=== PATIENT | male | born 1955 | race Caucasian/White ===

== ENCOUNTER 2021-07-23 00:50 | Inpatient (IN) | payer MEDICARE, SELFPAY ==
[~2021-07-23] VITALS: Ht 175.3 cm; Wt 79.9 kg
[2021-07-23 02:15] LABS: ALANINE AMINOTRANSFERASE 38 U/L (12-78); ALBUMIN 3.8 G/DL (3.4-5.0); ALBUMIN/GLOBULIN RATIO 1.1 (1.1-1.5); ALKALINE PHOSPHATASE 54 IU/L (46-116); ANION GAP 9 (8-16); ASPARTATE AMINO TRANSFERASE 27 U/L (10-37); BASOPHILS # (AUTO) 0.1 X10'3 (0-0.2); BASOPHILS % (AUTO) 0.9 % (0-1); BILIRUBIN,TOTAL 0.3 MG/DL (0.1-1.0); BLOOD UREA NITROGEN 29 MG/DL (7-18); BUN/CREATININE RATIO 40.8 (5.4-32.0); CALCIUM 9.1 MG/DL (8.5-10.1); CHLORIDE 105 MMOL/L (99-107); CREATININE 0.71 MG/DL (0.60-1.10); EOSINOPHILS # (AUTO) 0.2 X10'3 (0-0.9); EOSINOPHILS % (AUTO) 3.2 % (0-6); GLUCOSE 127 MG/DL (70-104); HEMATOCRIT 45.4 % (42.0-52.0); HEMOGLOBIN 15.4 g/dl (14.0-17.9); LIPASE 99 U/L (73-393); LYMPHOCYTES # (AUTO) 1.6 X10'3 (1.1-4.8); LYMPHOCYTES % (AUTO) 25.8 % (21-51); MEAN CORPUSCULAR HEMOGLOBIN 30.6 PG (27.0-31.0); MEAN CORPUSCULAR HGB CONC 33.9 g/dL (33.0-36.5); MEAN CORPUSCULAR VOLUME 90.2 FL (78-98); MONOCYTES # (AUTO) 0.6 X10'3 (0-0.9); MONOCYTES % (AUTO) 10.4 % (2-12); NEUTROPHILS # (AUTO) 3.6 X10'3 (1.8-7.7); NEUTROPHILS % (AUTO) 59.7 % (42-75); PLATELET COUNT 216 X10'3 (140-440); POTASSIUM 4.3 MMOL/L (3.5-5.1); RED BLOOD COUNT 5.04 X10'6 (4.70-6.10); RED CELL DISTRIBUTION WIDTH 13.4 % (11.5-14.5); SODIUM 141 MMOL/L (135-145); TOTAL CARBON DIOXIDE 26.9 MMOL/L (24-32); TOTAL PROTEIN 7.2 G/DL (6.4-8.2); eGFR > 90 ML/MIN
[2021-07-23] MEDS ORDERED: normal saline 1000ml 1,000 ML IV ONE (03:15)
[2021-07-23] MEDS ORDERED: piperacillin/tazo 4.5gm/100ml 100 ML IV SCH (03:17)
[2021-07-23 05:12] LABS: CLARITY,URINE CLEAR (Clear); COLOR,URINE YELLOW (Yellow); GLUCOSE, URINE NEGATIVE (Neg); KETONES,URINE NEGATIVE (Neg); LEUKOCYTE ESTERASE ,URINE NEGATIVE (Neg); NITRITES, URINE NEGATIVE (Neg); OCCULT BLOOD,URINE NEGATIVE (Neg); PH,URINE 6.5 (4.8-8.0); PROTEIN,URINE NEGATIVE (Neg); UROBILINOGEN,URINE 0.2 E.U/dL (0.2-1.0)
[2021-07-23 05:20] LABS: UA COLLECTION TYPE CLN CATCH MIDSTREAM
[2021-07-23] MEDS ORDERED: morphine 4 MG/ML inj SYRINge IV ONE (05:35)
[2021-07-23] MEDS ORDERED: magnesium hydroxide 30ml (MOM) UD suspension PO PRN (07:35)
[2021-07-23] MEDS ORDERED: potassium Cl 20 mEq SR tablet PO PRN ×2 (07:35)
[2021-07-23] MEDS ORDERED: HYDROmorphone inj. 0.5 MG/0.5 ML DISP.SYRIN IV PRN ×2 (07:35→18:00)
[2021-07-23] MEDS ORDERED: ondansetron/PF 4mg/2ml inj IV PRN (07:35)
[2021-07-23] MEDS ORDERED: mag hydrox/Alum hydrox/simeth 30ml oral suspension PO PRN (07:35)
[2021-07-23] MEDS ORDERED: potassium CL 10mEq/100ml bag 100 ML IV PRN (07:35)
[2021-07-23] MEDS ORDERED: HYDROmorphone/PF 0.2 MG/ML SYRINGE IV PRN ×2 (07:35→18:00)
[2021-07-23] MEDS ORDERED: acetaminophen 325mg tablet PO PRN (07:35)
[2021-07-23] MEDS ORDERED: magnesium 4gm in 100ml NS 100 ML IV PRN (07:35)
[2021-07-23] MEDS ORDERED: magnesium Cl slow-release 64mg tablet PO PRN (07:35)
[2021-07-23] MEDS ORDERED: magnesium 2GM in 50ml NS 50 ML IV PRN (07:35)
[2021-07-23] MEDS: docusate sod 100mg capsule PO SCH ×2 (08:00→19:37)
[2021-07-23] MEDS: enoxaparin 40mg/0.4ml syringe SUBCUT SCH (08:00)
[2021-07-23] MEDS: K and/or MAG REPLACEMENT MC SCH ×2 (08:00→19:11)
[2021-07-23] MEDS: normal saline 1000ml 1,000 ML IV SCH ×2 (08:33→18:05)
[2021-07-23 09:06] LABS: MAGNESIUM 2.3 MG/DL (1.5-2.4)
--- NOTE | 2021-07-23 12:30 | NUR ---
Dr. Gray at bedside.
[2021-07-23] MEDS ORDERED: LOSA25TA41 PO (13:10)
[2021-07-23] MEDS ORDERED: MELO-102 PO (13:10)
[2021-07-23] MEDS ORDERED: FLO0.4C PO (13:10)
[2021-07-23] MEDS ORDERED: LEVO100T9 PO (13:10)
[2021-07-23] MEDS ORDERED: BACL-11 PO (13:10)
[2021-07-23] MEDS ORDERED: CARV12.549 PO (13:10)
[2021-07-23] MEDS ORDERED: BUPR-317 PO (13:10)
--- NOTE | 2021-07-23 14:08 | NUR ---
Called CORAZON Gilliland on 3rd floor to give report; unavailable per rim fire charger operator.
--- NOTE | 2021-07-23 14:49 | NUR ---
dilaudid not effective. pt states, "no pain relief"
--- NOTE | 2021-07-23 14:50 | NUR ---
Report received from ED RN, Madan
--- NOTE | 2021-07-23 15:00 | NUR ---
PUT A CALL INTO DR. HERNANDEZ TO LET HIM KNOW DILAUDID NOT EFFECTIVE.
[2021-07-23 15:20] VITALS: BP 129/79
[2021-07-23] MEDS: piperacillin/tazo 4.5gm/100ml 100 ML IV SCH (16:22)
[2021-07-23] MEDS ORDERED: proCHLORperazine 10 MG/2 ml inj IV PRN (18:40)
[2021-07-23] MEDS ORDERED: baclofen 10mg tablet PO PRN (18:50)
[2021-07-23 19:00] VITALS: BP 114/70
--- NOTE | 2021-07-23 19:00 | NUR ---
Problems reprioritized. Patient report given, questions answered & plan of care reviewed with CORAZON West.
[2021-07-23] MEDS: tamsulosin 0.4mg capsule PO SCH (19:38)
[2021-07-23] MEDS: carVEDilol 12.5mg tablet PO SCH (19:38)
[2021-07-23] MEDS ORDERED: diphenhydrAMINE 25mg capsule PO PRN (20:30)
[2021-07-24] VITALS: BP 103/69
[2021-07-24] MEDS: piperacillin/tazo 4.5gm/100ml 100 ML IV SCH ×3 (00:01→15:47)
[2021-07-24] MEDS: normal saline 1000ml 1,000 ML IV SCH ×2 (03:16→13:19)
[2021-07-24 06:04] LABS: BASOPHILS % (AUTO) 0.2 % (0-1); EOSINOPHILS # (AUTO) 0.1 X10'3 (0-0.9); EOSINOPHILS % (AUTO) 1.1 % (0-6); HEMATOCRIT 38.2 % (42.0-52.0); HEMOGLOBIN 13.4 g/dl (14.0-17.9); LYMPHOCYTES # (AUTO) 1.4 X10'3 (1.1-4.8); MEAN CORPUSCULAR HEMOGLOBIN 31.1 PG (27.0-31.0); MEAN CORPUSCULAR VOLUME 88.7 FL (78-98); MEAN PLATELET VOLUME 7.1 FL (7.4-10.4); MONOCYTES # (AUTO) 0.8 X10'3 (0-0.9); MONOCYTES % (AUTO) 7.3 % (2-12); NEUTROPHILS # (AUTO) 8.2 X10'3 (1.8-7.7); NEUTROPHILS % (AUTO) 78.4 % (42-75); PLATELET COUNT 183 X10'3 (140-440); RED BLOOD COUNT 4.31 X10'6 (4.70-6.10); WHITE BLOOD COUNT 10.5 X10'3 (4.5-11.0)
--- NOTE | 2021-07-24 06:15 | NUR ---
Patient in room [facility] 346. I have received report from CORAZON West and had the opportunity to ask questions and assume patient care.
[2021-07-24 06:30] VITALS: BP 117/73
[2021-07-24 06:31] LABS: ALBUMIN 2.9 G/DL (3.4-5.0); BLOOD UREA NITROGEN 12 MG/DL (7-18); BUN/CREATININE RATIO 21.1 (5.4-32.0); CALCIUM 8.2 MG/DL (8.5-10.1); CREATININE 0.57 MG/DL (0.60-1.10); GLUCOSE 108 MG/DL (70-104); TOTAL CARBON DIOXIDE 24.4 MMOL/L (24-32); eGFR > 90 ML/MIN
[2021-07-24] MEDS: K and/or MAG REPLACEMENT MC SCH ×2 (08:00→19:10)
[2021-07-24] MEDS: buproprion 150mg XL (24-hour) tablet PO SCH (09:14)
[2021-07-24] MEDS: levoTHYROXINE 100mcg tablet PO SCH (09:14)
[2021-07-24] MEDS: docusate sod 100mg capsule PO SCH ×2 (09:14→19:33)
[2021-07-24] MEDS: carVEDilol 12.5mg tablet PO SCH ×2 (09:14→19:33)
[2021-07-24] MEDS: tamsulosin 0.4mg capsule PO SCH ×2 (09:15→19:33)
[2021-07-24] MEDS: losartan 25mg tablet PO SCH (09:15)
[2021-07-24] MEDS: enoxaparin 40mg/0.4ml syringe SUBCUT SCH (09:21)
[2021-07-24 11:00] VITALS: BP 137/87
[2021-07-24] MEDS ORDERED: zolpidem 5mg tablet PO PRN (18:10)
[2021-07-24 19:00] VITALS: BP 149/89
--- NOTE | 2021-07-24 19:10 | NUR ---
Problems reprioritized. Patient report given, questions answered & plan of care reviewed with CORAZON West.
[2021-07-25] VITALS: BP 128/80
[2021-07-25] MEDS: normal saline 1000ml 1,000 ML IV SCH ×2 (00:07→09:35)
[2021-07-25] MEDS: piperacillin/tazo 4.5gm/100ml 100 ML IV SCH ×2 (00:07→08:00)
--- NOTE | 2021-07-25 06:45 | NUR ---
Patient in room [facility] 346B. I have received report from CORAZON KEYES and had the opportunity to ask questions and assume patient care.
[2021-07-25 07:05] LABS: BASOPHILS % (AUTO) 0.3 % (0-1); EOSINOPHILS # (AUTO) 0.3 X10'3 (0-0.9); EOSINOPHILS % (AUTO) 3.6 % (0-6); HEMATOCRIT 39.5 % (42.0-52.0); HEMOGLOBIN 13.3 g/dl (14.0-17.9); LYMPHOCYTES # (AUTO) 1.1 X10'3 (1.1-4.8); LYMPHOCYTES % (AUTO) 13.4 % (21-51); MEAN CORPUSCULAR HEMOGLOBIN 30.5 PG (27.0-31.0); MEAN CORPUSCULAR HGB CONC 33.7 g/dL (33.0-36.5); MEAN CORPUSCULAR VOLUME 90.7 FL (78-98); MONOCYTES # (AUTO) 0.8 X10'3 (0-0.9); MONOCYTES % (AUTO) 9.3 % (2-12); NEUTROPHILS # (AUTO) 6.1 X10'3 (1.8-7.7); NEUTROPHILS % (AUTO) 73.4 % (42-75); PLATELET COUNT 182 X10'3 (140-440); RED BLOOD COUNT 4.36 X10'6 (4.70-6.10); RED CELL DISTRIBUTION WIDTH 13.1 % (11.5-14.5); WHITE BLOOD COUNT 8.3 X10'3 (4.5-11.0)
[2021-07-25 07:26] LABS: ALBUMIN 2.9 G/DL (3.4-5.0); ANION GAP 6 (8-16); BLOOD UREA NITROGEN 7 MG/DL (7-18); BUN/CREATININE RATIO 12.3 (5.4-32.0); CALCIUM 8.4 MG/DL (8.5-10.1); CHLORIDE 107 MMOL/L (99-107); CREATININE 0.57 MG/DL (0.60-1.10); GLUCOSE 105 MG/DL (70-104); POTASSIUM 3.6 MMOL/L (3.5-5.1); SODIUM 139 MMOL/L (135-145); eGFR > 90 ML/MIN
[2021-07-25] MEDS: carVEDilol 12.5mg tablet PO SCH (07:56)
[2021-07-25] MEDS: losartan 25mg tablet PO SCH (07:56)
[2021-07-25] MEDS: tamsulosin 0.4mg capsule PO SCH (07:57)
[2021-07-25] MEDS: levoTHYROXINE 100mcg tablet PO SCH (07:57)
[2021-07-25] MEDS: enoxaparin 40mg/0.4ml syringe SUBCUT SCH ×2 (07:58→08:00)
[2021-07-25] MEDS: buproprion 150mg XL (24-hour) tablet PO SCH (07:59)
[2021-07-25] MEDS: docusate sod 100mg capsule PO SCH (08:00)
[2021-07-25] MEDS ORDERED: amox tr/potassium clavulanate 875/125mg TAB PO ONE (10:10)
[2021-07-25] MEDS ORDERED: AMOX-117 PO (10:30)
[2021-07-25] MEDS ORDERED: buPROPion SR 150mg tablet PO SCH (10:46)
[2021-07-25 11:00] VITALS: BP 123/79
--- NOTE | 2021-07-25 11:45 | NUR ---
PATIENT STABLE AND APPROPRIATE FOR DISCHARGE, IV TAKEN OUT, EDUCATION GIVEN, NEW MEDS E-SCRIPTED TO PREFERRED PHARMACY, ALL BELONGINGS SENT WITH PATIENT, PATIENT TAKEN BY WHEELCHAIR TO LOBBY TO AN AWAITING CAR WHERE WILL TAKE PATIENT HOME
--- NOTE | 2021-07-25 12:16 | NUR ---
Nutrition Consult: Pt admit DX diverticulitis RN requesting RD visit for diet education. Pt/SO seen by RD at bedside for written/verbal low-fiber diet ed w/ RD contact information provided. RD educated pt/ on progression of fiber addition over time w/ ultimate goal of higher fiber diet in the long run to assist w/ minimizing further episodes. RD encouraged pt/ to contact dietitian's office if further questions/concerns. Addendum: 07/25/21 at [address] Amended: Links added.
[2021-07-25 15:38] LABS: ANION GAP 5 (8-16); CHLORIDE 110 MMOL/L (99-107); SODIUM 139 MMOL/L (135-145)
== END 2021-07-25 11:54 | disposition home or self-care (01) | DRG 392 ==
LOC: ER 00:51 → ED HOLD 07:36 → SUR 3N 15:07
PROVIDERS: ADMIT Family Medicine; ATTEND Family Medicine
DX: K57.20 Diverticulitis of large intestine with perforation and abscess without bleeding (principal); I10 Essential (primary) hypertension; E03.9 Hypothyroidism, unspecified; F41.9 Anxiety disorder, unspecified; G89.4 Chronic pain syndrome; Z20.822 Contact with and (suspected) exposure to COVID-19; M19.90 Unspecified osteoarthritis, unspecified site; Z88.1 Allergy status to other antibiotic agents; Z88.6 Allergy status to analgesic agent
CPT/HCPCS: 36415; 74176; 80048; 80053; 81003; 83605; 83690; 83735; 84443; 85025; 87081; 87635; 96360; 99285; G0378; J0780; J1170; J1650; J2270; J2405; J2543; J7030; Q0163

== ENCOUNTER 2021-09-01 06:41 | Inpatient (IN) | payer MEDICARE, SELFPAY ==
[2021-08-30 12:08] LABS: BASOPHILS % (AUTO) 0.7 % (0-1); EOSINOPHILS # (AUTO) 0.1 X10'3 (0-0.9); EOSINOPHILS % (AUTO) 2.6 % (0-6); LYMPHOCYTES # (AUTO) 1.3 X10'3 (1.1-4.8); LYMPHOCYTES % (AUTO) 22.9 % (21-51); MEAN CORPUSCULAR HEMOGLOBIN 30.4 PG (27.0-31.0); MEAN CORPUSCULAR HGB CONC 33.8 g/dL (33.0-36.5); MEAN CORPUSCULAR VOLUME 89.9 FL (78-98); MEAN PLATELET VOLUME 7.2 FL (7.4-10.4); MONOCYTES # (AUTO) 0.6 X10'3 (0-0.9); MONOCYTES % (AUTO) 11.3 % (2-12); NEUTROPHILS # (AUTO) 3.6 X10'3 (1.8-7.7); NEUTROPHILS % (AUTO) 62.5 % (42-75); PRE OP HEMATOCRIT 44.3 % (42.0-52.0); PRE OP PLATELET COUNT 242 X10'3 (140-440); RED BLOOD COUNT 4.93 X10'6 (4.70-6.10); RED CELL DISTRIBUTION WIDTH 13.5 % (11.5-14.5)
[2021-08-30 12:20] LABS: ALBUMIN 3.8 G/DL (3.4-5.0); ALKALINE PHOSPHATASE 54 IU/L (46-116); BLOOD UREA NITROGEN 11 MG/DL (7-18); BUN/CREATININE RATIO 16.4 (5.4-32.0); CALCIUM 9.1 MG/DL (8.5-10.1); CHLORIDE 103 MMOL/L (99-107); CREATININE 0.67 MG/DL (0.60-1.10); PRE OP ALT 69 U/L (30-65); PRE OP ANION GAP 9 (8-16); PRE OP AST 30 U/L (10-37); PRE OP BILIRUB, TOTAL 0.6 MG/DL (0.0-1.0); PRE OP GLUCOSE 101 MG/DL (70-104); PRE OP SODIUM 139 MMOL/L (135-145); TOTAL CARBON DIOXIDE 26.6 MMOL/L (24-32); TOTAL PROTEIN 7.5 G/DL (6.4-8.2); eGFR > 90 ML/MIN
[2021-09-01] VITALS (22 sets, daily range): BP systolic 104–140; BP diastolic 60–90
[~2021-09-01] VITALS: Ht 175.3 cm; Wt 75.3 kg
[~2021-09-01 06:41] MED LIST: BACL-11 PO; BUPR-317 PO; CARV12.549 PO; COLON HEALTH; DOCUMENT DATE & TIME OF BETA-BLOCKER PO ONE; FAMO20TA8 PO; FLO0.4C PO; LACT1CAP65 PO; LEVO100T9 PO; LOSA25TA41 PO; ZOLP10TA PO; [UNRECOGNIZED DRUG - OTHER]; ceFOXitin 2GM-NS 100mL ADDvant 100 ML IV ONE; famotidine 20mg tablet PO ONE; ringers solution, lacted 1,000 ML IV SCH
[2021-09-01] MEDS ORDERED: LIDOcaine 1% 30ml preserv. free vial ONE (07:03)
[2021-09-01] MEDS ORDERED: BUPIVAcaine 0.5% inj/PF 30 ML ONE (07:03)
[2021-09-01] MEDS ORDERED: hydrALAZINE 20mg/ml inj. IV PRN ×2 (07:30→10:10)
[2021-09-01] MEDS ORDERED: ondansetron/PF 4mg/2ml inj IV PRN ×3 (07:30→11:20)
[2021-09-01] MEDS ORDERED: ringers solution, lacted 1,000 ML IV SCH ×2 (07:30→10:10)
[2021-09-01] MEDS ORDERED: morphine 4 MG/ML inj SYRINge IV PRN (07:30)
[2021-09-01] MEDS ORDERED: fentaNYL/PF 50MCG/1 ML 2ML syringe IV PRN ×4 (07:30→10:10)
[2021-09-01] MEDS ORDERED: labetalol 20mg/4ml (5mg/ml) syringe IV PRN (07:30)
[2021-09-01] MEDS ORDERED: morphine 2 MG/ML inj. syringe IV PRN ×2 (07:30→10:10)
[2021-09-01] MEDS ORDERED: MIDAZolam 1mg/ml 10ml vial IV ONE (08:00)
[2021-09-01] MEDS ORDERED: sevoflurane 250ml liquid IH ONE (09:17)
[2021-09-01] MEDS ORDERED: dexamethasone sod phosphate 10mg/ml inj ONE (09:17)
[2021-09-01] MEDS ORDERED: rocuronium 10mg/ml inj IV ONE ×2 (09:17→09:35)
--- NOTE | 2021-09-01 09:25 | NUR ---
DUE TO PT INCREASED ANXIETY ORDER PER DR. Lovelace TO GIVEN VERSED 2MG IV Q 5 MIN X 3 DOSES. 1ST DOSE GIVEN AT 0822. PT PAUL WELL ANXIETY DECREASED AND PT RESTING WITH EYES CLOSED NO FURTHER DOSES NEEDED. DR Lovelace IN TO SEE PT REQUESTED 2ND DOSE TO BE GIVEN, 2MG GIVEN AT 0915. PT PAUL WELL. TO OR AT 0925
[2021-09-01] MEDS ORDERED: MIDAZolam 1 MG/ML 5ML VIAL ONE (09:27)
[2021-09-01] MEDS ORDERED: LIDOcaine 2% (20mg/ml) 5ml vial ONE (09:34)
[2021-09-01] MEDS ORDERED: propofol inj 20 ML IV ONE (09:34)
[2021-09-01] MEDS ORDERED: ondansetron/PF 4mg/2ml inj ONE (09:35)
[2021-09-01] MEDS ORDERED: morphine 10mg/ml inj. ONE ×2 (09:35)
[2021-09-01] MEDS ORDERED: glycopyrrolate 0.2mg/ml inj ONE (09:36)
[2021-09-01] MEDS ORDERED: ePHEDrine 50MG/ML INJ. ONE (09:53)
[2021-09-01] MEDS ORDERED: BUPIVAcaine 0.5% inj/PF 30 ml vial IJ ONE (09:59)
[2021-09-01] MEDS ORDERED: enalaprilat dihydrate 2.5mg/2ml vial IV PRN (10:10)
[2021-09-01] MEDS ORDERED: zolpidem 5mg tablet PO PRN (11:20)
[2021-09-01] MEDS ORDERED: naloxone 0.4 mg/ml inj IV PRN (11:20)
[2021-09-01] MEDS ORDERED: LORazepam 2 mg/ml vial IV PRN (11:20)
--- NOTE | 2021-09-01 11:20 | NUR ---
Received from OR via HOSPITAL BED , accompanied by Anesthesiologist DR SWANN and report given by Anesthesiolgist. PT PRESENTS WITH 20G LEFT WRIST, 3 BANDAIDS ON ABD CDI, VSS. Addendum: 09/01/21 at 1130 by Yuki Workman RN, RN Amended: Links added.
[2021-09-01] MEDS ORDERED: baclofen 10mg tablet PO PRN (11:25)
[2021-09-01] MEDS: morphine 4 MG/ML inj SYRINge IV PRN ×3 (11:44→12:24)
--- NOTE | 2021-09-01 12:50 | NUR ---
Report called to receiving nurse KAROLINE CHANDRA. PT Transferred TO ROOM 4013A BY RAZ CHANDRA ON HOSPITAL BED. BED IN LOW LOCKED POSITION, CALL LIGHT IN REACH. ONE PT BELONGING BAG TO ROOM AND LEFT HEARING AID. Special Issues communicated to receiving nurse. Addendum: 09/01/21 at 1334 by Yuki Workman RN RN Amended: Links added.
--- NOTE | 2021-09-01 13:22 | NUR ---
Patient in room PAS IN 900. I have received report from Yuki CHANDRA and had the opportunity to ask questions and assume patient care. Patient orientated to room. four bandaides CDI. pain 10/28. present.
[2021-09-01] MEDS: ketorolac trometh. 30mg/ml inj. IV SCH (16:15)
[2021-09-01] MEDS: ceFOXitin inj 1,000 MG in dextrose 5%-water 100 ML IV SCH (16:16)
[2021-09-01] MEDS: ringers solution, lacted 1,000 ML IV SCH ×2 (16:16→21:20)
--- NOTE | 2021-09-01 16:34 | NUR ---
patient unable to void, given pain relief and ambulated will keep monitoring bladder scanned 592mls .
--- NOTE | 2021-09-01 18:10 | NUR ---
16fr Wyatt placed draining yellow clear urine.
--- NOTE | 2021-09-01 18:43 | NUR ---
Problems reprioritized. Patient report given, questions answered & plan of care reviewed with rowan CHANDRA.
[2021-09-01] MEDS ORDERED: oxyCODONE/APAP 5-325mg tablet PO PRN (19:55)
[2021-09-01] MEDS: zolpidem 5mg tablet PO PRN (20:38)
[2021-09-01] MEDS: tamsulosin 0.4mg capsule PO SCH (20:39)
[2021-09-01] MEDS: carVEDilol 12.5mg tablet PO SCH (20:39)
[2021-09-02] MEDS: ketorolac trometh. 30mg/ml inj. IV SCH ×3 (00:16→15:58)
[2021-09-02] MEDS: ceFOXitin inj 1,000 MG in dextrose 5%-water 100 ML IV SCH (00:16)
[2021-09-02] MEDS: oxyCODONE/APAP 5-325mg tablet PO PRN ×3 (03:02→21:15)
[2021-09-02 06:00] VITALS: BP 116/71
[2021-09-02 06:21] LABS: BASOPHILS % (AUTO) 0.1 % (0-1); EOSINOPHILS % (AUTO) 0.1 % (0-6); HEMATOCRIT 36.7 % (42.0-52.0); HEMOGLOBIN 12.5 g/dl (14.0-17.9); LYMPHOCYTES % (AUTO) 8.9 % (21-51); MEAN CORPUSCULAR HEMOGLOBIN 30.4 PG (27.0-31.0); MEAN CORPUSCULAR HGB CONC 34.1 g/dL (33.0-36.5); MONOCYTES # (AUTO) 0.8 X10'3 (0-0.9); MONOCYTES % (AUTO) 7.4 % (2-12); NEUTROPHILS # (AUTO) 9.4 X10'3 (1.8-7.7); NEUTROPHILS % (AUTO) 83.5 % (42-75); PLATELET COUNT 198 X10'3 (140-440); RED BLOOD COUNT 4.12 X10'6 (4.70-6.10); RED CELL DISTRIBUTION WIDTH 13.4 % (11.5-14.5); WHITE BLOOD COUNT 11.2 X10'3 (4.5-11.0)
--- NOTE | 2021-09-02 06:43 | NUR ---
Problems reprioritized. Patient report given, questions answered & plan of care reviewed with Judi CHANDRA.
[2021-09-02 07:00] LABS: ALBUMIN 2.9 G/DL (3.4-5.0); ANION GAP 9 (8-16); BLOOD UREA NITROGEN 9 MG/DL (7-18); BUN/CREATININE RATIO 13.2 (5.4-32.0); CALCIUM 8.3 MG/DL (8.5-10.1); CHLORIDE 107 MMOL/L (99-107); CREATININE 0.68 MG/DL (0.60-1.10); GLUCOSE 132 MG/DL (70-104); SODIUM 141 MMOL/L (135-145); TOTAL CARBON DIOXIDE 24.7 MMOL/L (24-32); eGFR > 90 ML/MIN
[2021-09-02] MEDS: ringers solution, lacted 1,000 ML IV SCH (07:20)
[2021-09-02] MEDS: carVEDilol 12.5mg tablet PO SCH (08:00)
[2021-09-02] MEDS ORDERED: losartan 25mg tablet PO SCH ×2 (08:00→08:15)
[2021-09-02] MEDS: enoxaparin 40mg/0.4ml syringe SQ SCH (08:00)
[2021-09-02] MEDS ORDERED: buproprion 150mg XL (24-hour) tablet PO SCH (08:00)
[2021-09-02] MEDS: tamsulosin 0.4mg capsule PO SCH ×2 (08:01→20:22)
[2021-09-02] MEDS: levoTHYROXINE 100mcg tablet PO SCH (08:01)
[2021-09-02] MEDS: buPROPion SR 150mg tablet PO SCH (09:26)
[2021-09-02 10:00] VITALS: BP 113/69
[2021-09-02] MEDS ORDERED: carVEDilol 12.5mg tablet PO SCH ×2 (14:40→20:00)
--- NOTE | 2021-09-02 14:41 | NUR ---
Ok per Dr Harkins to leave Wyatt catheter in today and continue bladder training. MATTY Wyatt in am.
--- NOTE | 2021-09-02 18:41 | NUR ---
Problems reprioritized. Patient report given, questions answered & plan of care reviewed with Brissa CHANDRA.
[2021-09-02 19:00] VITALS: BP 155/86
[2021-09-02] MEDS: zolpidem 5mg tablet PO PRN (21:16)
[2021-09-02 22:00] VITALS: BP_SYST 149; BP_SYST 153; BP_DIAS 89; BP_DIAS 96
[2021-09-03] MEDS: ketorolac trometh. 30mg/ml inj. IV SCH ×2 (00:13→09:29)
[2021-09-03] MEDS: oxyCODONE/APAP 5-325mg tablet PO PRN (05:41)
--- NOTE | 2021-09-03 06:42 | NUR ---
Problems reprioritized. Patient report given, questions answered & plan of care reviewed with CORAZON Small.
[2021-09-03] MEDS: tamsulosin 0.4mg capsule PO SCH (08:00)
[2021-09-03] MEDS: enoxaparin 40mg/0.4ml syringe SQ SCH ×2 (08:00→09:30)
[2021-09-03 08:06] LABS: BASOPHILS % (AUTO) 0.6 % (0-1); EOSINOPHILS # (AUTO) 0.2 X10'3 (0-0.9); EOSINOPHILS % (AUTO) 2.2 % (0-6); HEMATOCRIT 40.9 % (42.0-52.0); LYMPHOCYTES # (AUTO) 1.6 X10'3 (1.1-4.8); LYMPHOCYTES % (AUTO) 20.8 % (21-51); MEAN CORPUSCULAR HEMOGLOBIN 30.6 PG (27.0-31.0); MEAN CORPUSCULAR HGB CONC 34.2 g/dL (33.0-36.5); MEAN CORPUSCULAR VOLUME 89.6 FL (78-98); MONOCYTES # (AUTO) 0.8 X10'3 (0-0.9); MONOCYTES % (AUTO) 10.9 % (2-12); NEUTROPHILS % (AUTO) 65.5 % (42-75); PLATELET COUNT 203 X10'3 (140-440); RED BLOOD COUNT 4.56 X10'6 (4.70-6.10); RED CELL DISTRIBUTION WIDTH 13.7 % (11.5-14.5); WHITE BLOOD COUNT 7.6 X10'3 (4.5-11.0)
[2021-09-03 08:16] LABS: ALBUMIN 3.3 G/DL (3.4-5.0); ANION GAP 7 (8-16); BLOOD UREA NITROGEN 11 MG/DL (7-18); BUN/CREATININE RATIO 14.7 (5.4-32.0); CALCIUM 8.5 MG/DL (8.5-10.1); CHLORIDE 108 MMOL/L (99-107); CREATININE 0.75 MG/DL (0.60-1.10); GLUCOSE 113 MG/DL (70-104); POTASSIUM 3.5 MMOL/L (3.5-5.1); SODIUM 144 MMOL/L (135-145); TOTAL CARBON DIOXIDE 28.8 MMOL/L (24-32); eGFR > 90 ML/MIN
[2021-09-03] MEDS: buPROPion SR 150mg tablet PO SCH (09:29)
[2021-09-03] MEDS: levoTHYROXINE 100mcg tablet PO SCH (09:29)
[2021-09-03 10:00] VITALS: BP 132/82
[2021-09-03] MEDS ORDERED: magnesium hydroxide 30ml (MOM) UD suspension PO ONE (11:45)
[2021-09-03] MEDS ORDERED: PER5325T PO (11:45)
--- NOTE | 2021-09-03 13:53 | NUR ---
Patient discharged home with Kati. Patient will get biopsy results called to him and follow up with Dr Harkins in 2 weeks and is aware he needs to call for appt. IV taken out, all belongings taken from room. Patient will pepper picker medication at pharmacy. I called to verify they got it. No tele, no meds in pharmacy. Pt appears appropriate for discharge.
[2021-09-03] MEDS ORDERED: carVEDilol 12.5mg tablet PO SCH (21:00)
== END 2021-09-03 13:20 | disposition home or self-care (01) | DRG 331 ==
LOC: PAS IN 06:41 → ORTHO 4S 13:00
PROVIDERS: ADMIT Surgery; ATTEND Surgery
PROC: 0DTJ4ZZ Resection of Appendix, Percutaneous Endoscopic Approach (ICD-10-PCS; 2021-09-01)
PROC: 8E0W4CZ Robotic Assisted Procedure of Trunk Region, Percutaneous Endoscopic Approach (ICD-10-PCS; 2021-09-01)
PROC: 0DBH4ZZ Excision of Cecum, Percutaneous Endoscopic Approach (ICD-10-PCS; principal; 2021-09-01 09:17)
DX: K63.9 Disease of intestine, unspecified (principal); Z79.899 Other long term (current) drug therapy
CPT/HCPCS: 36415; 80048; 80053; 82948; 85025; 86885; 86900; 86901; 87081; 87635; 88305; 88307; 88313; 88331; 93005; A4215; A4618; C1758; G0378; J0694; J1100; J1650; J1885; J2250; J2270; J2274; J2405; J2704; J3490; J7060; J7120; S0020

== ENCOUNTER 2024-05-04 18:25 | Emergency (ER) | payer MEDICARE, SELFPAY ==
[~2024-05-04] VITALS: Ht 175.3 cm; Wt 79.5 kg
[~2024-05-04 18:25] MED LIST changes: -BUPR-317 PO; +BUPR-561 PO; -DOCUMENT DATE & TIME OF BETA-BLOCKER PO ONE; +PER5325T PO; -ceFOXitin 2GM-NS 100mL ADDvant 100 ML IV ONE; -famotidine 20mg tablet PO ONE; -ringers solution, lacted 1,000 ML IV SCH
[2024-05-04 19:07] LABS: BASOPHILS % (AUTO) 0.8 % (0-1); EOSINOPHILS # (AUTO) 0.2 X10'3 (0-0.9); EOSINOPHILS % (AUTO) 3.4 % (0-6); HEMATOCRIT 45.1 % (42.0-52.0); HEMOGLOBIN 15.5 g/dl (14.0-17.9); LYMPHOCYTES % (AUTO) 32.1 % (21-51); MEAN CORPUSCULAR HEMOGLOBIN 31.8 PG (27.0-31.0); MEAN CORPUSCULAR HGB CONC 34.4 g/dL (33.0-36.5); MEAN CORPUSCULAR VOLUME 92.4 FL (78-98); MEAN PLATELET VOLUME 7.3 FL (7.4-10.4); MONOCYTES # (AUTO) 0.7 X10'3 (0-0.9); MONOCYTES % (AUTO) 10.7 % (2-12); NEUTROPHILS # (AUTO) 3.3 X10'3 (1.8-7.7); PLATELET COUNT 275 X10'3 (140-440); RED BLOOD COUNT 4.89 X10'6 (4.70-6.10); RED CELL DISTRIBUTION WIDTH 13.1 % (11.5-14.5); WHITE BLOOD COUNT 6.3 X10'3 (4.5-11.0)
[2024-05-04 19:26] LABS: ALANINE AMINOTRANSFERASE 38 U/L (12-78); ALBUMIN 3.8 G/DL (3.4-5.0); ALKALINE PHOSPHATASE 58 IU/L (46-116); ANION GAP 8 (8-16); ASPARTATE AMINO TRANSFERASE 26 U/L (10-37); BILIRUBIN,TOTAL 0.3 MG/DL (0.1-1.0); BLOOD UREA NITROGEN 13 MG/DL (7-18); CALCIUM 8.7 MG/DL (8.5-10.1); CHLORIDE 106 MMOL/L (99-107); CREATININE 0.93 MG/DL (0.60-1.10); GLUCOSE 130 MG/DL (70-104); POTASSIUM 3.6 MMOL/L (3.5-5.1); SODIUM 143 MMOL/L (135-145); TOTAL CARBON DIOXIDE 29.1 MMOL/L (24-32); TOTAL PROTEIN 7.6 G/DL (6.4-8.2); eCRCL 76 ML/MIN; eGFR 81 ML/MIN
[2024-05-04 19:32] LABS: PRO BRAIN NATRIURETIC PEPTIDE 47 PG/ML (0-125)
[2024-05-04 20:16] VITALS: BP 163/103; PULSE 94; RESP 16; TEMP 98.2; O2SAT 94
== END 2024-05-04 20:30 | disposition home or self-care (01) ==
LOC: ER 18:26
DX: R07.89 Other chest pain (principal); I10 Essential (primary) hypertension; G89.29 Other chronic pain; M19.90 Unspecified osteoarthritis, unspecified site; Z88.5 Allergy status to narcotic agent; Z88.1 Allergy status to other antibiotic agents
CPT/HCPCS: 36415; 71045; 80053; 83880; 84484; 85025; 93005; 99285

== ENCOUNTER 2025-05-17 18:46 | Emergency (ER) | payer MEDICARE, SELFPAY ==
[~2025-05-17] VITALS: Ht 175.3 cm; Wt 79.6 kg
[~2025-05-17 18:46] MED LIST changes: -BUPR-561 PO; +BUPR-726 PO; +ZOLP-679 PO; -ZOLP10TA PO
[2025-05-17 18:49] VITALS: TEMP 98.9
--- NOTE | 2025-05-17 19:00 | ELECTROCARDIOGRAPH REPORT ---
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 Boaz Alberto Measurements Intervals [place] Rate: 97 P: 50 UT: 135 QRS: 13 QRSD: 80 T: 1 QT: 336 QTc: 427 Interpretive Statements Sinus rhythm Minimal ST depression, anterolateral leads Electronically Signed On 05-18-2025 11:17:[address] Boaz Alberto Please click the below link to view image of tracing.
[2025-05-17 19:14] LABS: MEAN PLATELET VOLUME 7.1 FL (7.4-10.4); RED CELL DISTRIBUTION WIDTH 13.3 % (11.5-14.5)
[2025-05-17 19:38] LABS: CREATININE 0.78 MG/DL (0.60-1.10); PRO BRAIN NATRIURETIC PEPTIDE < 30 PG/ML (0-125); TOTAL CARBON DIOXIDE 30.9 MMOL/L (24-32); eCRCL 89 ML/MIN; eGFR > 90 ML/MIN
--- NOTE | 2025-05-17 19:47 | RADIOLOGY REPORT ---
EXAM: DI CHEST,SINGLE VIEW CLINICAL HISTORY: CP TECHNIQUE: Single PA view of the chest WID: COMPARISON: DI CHEST,SINGLE VIEW on DOS: 05/04/24 FINDINGS: Lines and tubes: None Chest: The heart size and pulmonary vasculature is within normal limits. Calcified plaque projects Over the aortic arch. No pleural effusion, pneumothorax, or consolidation. The osseous structures are grossly intact. Multilevel thoracic spondylosis. IMPRESSION: 1. No acute cardiopulmonary abnormality.
[2025-05-17 20:57] VITALS: BP 137/99; PULSE 89; RESP 13; O2SAT 95
--- NOTE | 2025-05-17 21:33 | Physician Documentation ---
History of Present Illness ~ Chief Complaint: Chest Pain Stated Complaint: LEFT SIDE PAIN Time Seen by MD: 19:25 Primary Medical Doctor: DR YUMIKO MAHAN This is a 70-year-old male past history of hypertension and hiatal hernia coming in with acute on chronic chest pain. Patient states he feels the pain in the left chest comes and goes at rest or when active. Wound a 40 mi bike ride today. States it lasts about 60 seconds goes away and his paroxysmal. Been over a year since he has had an EGD. Patient has frequent heartburn and states he has in his upper esophagus often. He denies any shortness of breath weakness diaphoresis. Has had a negative stress test performed within the last year per patient. Has a business process consultant he follows with locally. Patient anxious currently. Does not like hospitals. No other associated symptoms at this time. Review of systems otherwise negative. Medication Reconciliation Allergies: Coded Allergies: Erythromycin Lactobionate (Verified Allergy, Unknown, 05/17/25) hydrocodone (Verified Allergy, Unknown, 05/17/25) Scheduled Bupropion HCl (Bupropion Xl), 1 TAB PO QAM, (Reported) Carvedilol (Carvedilol), 1 TAB PO Q12H, (Reported) Levothyroxine Sodium (Levothyroxine Sodium), 1 TAB PO QAM, (Reported) Losartan Potassium (Losartan Potassium), 1 TAB PO DAILY, (Reported) Omeprazole (Prilosec), 1 CAP PO DAILY Tamsulosin Hcl (Flomax), 1 CAP PO BID, (Reported) Zolpidem Tartrate (Ambien), 1 TAB PO HSPRN, (Reported) Scheduled PRN Baclofen (Baclofen), 1 TAB PO BID PRN for MUSCLE PAIN, (Reported) Oxycodone Hcl/Acetaminophen 5/325 MG* (Percocet 5/325 MG*), 1 TAB PO Q4H PRN for moderate or severe pain 4-10 Miscellaneous Medications Famotidine (Famotidine), 1 TAB PO, (Reported) Lactobacillus Acidophilus (Probiotic), 1 EACH PO, (Reported) [Colon Health], (Reported) [Marshmellow Root], (Reported) Past Medical History Past Medical History: *CARDIOVASCULAR*, Hypertension, Arthritis, Chronic Pain, Anxiety Past Surgical History: noncontributory Alcohol Use: None Drug Use: none Lives In: Home Review of Systems Constitutional: Reports: no symptoms reported Eyes: Reports: no symptoms reported ENT: Reports: no symptoms reported Respiratory: Reports: no symptoms reported Cardiovascular: Reports: chest pain Gastrointestinal: Reports: no symptoms reported Genitourinary: Reports: no symptoms reported Musculoskeletal: Reports: no symptoms reported Allergic/Immunologic: Reports: no symptoms reported Physical Exam Vital Signs: Temperature: 98.9, Source: Temporal, Heart Rate: 89, Respiratory Rate: 13, BP: 137/99, Pulse Oximetry: 95, Weight: 79.600 Oxygen Flow Rate: 0 Physical Exam General: Awake no distress. Verbal Head: No trauma Eyes: Nl lids Nl conjunctiva. No eye discharge ENT: Mucous membranes Nl. Lips Nl. No lesions Neck: Supple. No JVD. No visible mass Resp: Rate normal. No respiratory distress. No retractions. Normal air flow. No wheezes, rhonchi, or rales. Heart: Regular rhythm. No murmur. No rub Abdomen: Soft. Nontender. No guarding. No rebound Musc/skeletal: No calf or popliteal tenderness. No edema Skin: No rash. No petechiae. Not diaphoretic Neuro: Alert, oriented. Normal speech Progress Results/Orders Results/Orders Orders - GOOD KRAFT MD Chest,Single View (05/17/25 19:06) Monitor (05/17/25 18:58) Saline Lock (05/17/25 18:58) Oxygen (05/17/25 18:58) Electrocardiogram (05/17/25 18:58) Completed Orders - GOOD KRAFT MD Chest,Single View (05/17/25 19:06) Cbc/Diff (05/17/25 18:58) BMP (05/17/25 18:58) PBNP (05/17/25 18:58) Electrocardiogram (05/17/25 18:58) Hs Troponin I W Calculations (05/17/25 18:58) Hs Troponin I W Calculations (05/17/25 20:58) Pantoprazole 40mg Iv (Protonix 40mg Iv) (05/17/25 21:25) Lidocaine 2% Viscous (Xylocaine 2% Visco (05/18/25 00:00) Mag & Alum Hydrox/Simeth Susp (Maalox Or (05/17/25 21:25) Acetaminophen 325mg Tablet (Tylenol Tabl (05/17/25 21:40) Acetaminophen 325mg Tablet (Tylenol Tabl (05/17/25 21:50) Vital Signs 05/17/25 05/17/25 05/17/25 18:49 20:18 20:57 Temp 98.9 Pulse 96 85 89 Resp 16 13 13 B/P (MAP) 163/125 140/100 (113) 137/99 (112) Pulse Ox 98 96 95 O2 Flow Rate 0 0 0 Laboratory Tests Test 05/17/25 19:03 05/17/25 21:14 White Blood Count 7.0 Red Blood Count 5.02 Hemoglobin 15.2 Hematocrit 45.4 Mean Corpuscular Volume 90.4 Mean Corpuscular Hemoglobin 30.2 Mean Corpuscular Hemoglobin Concent 33.4 Red Cell Distribution Width 13.3 Platelet Count 248 Mean Platelet Volume 7.1 L Neutrophils (%) (Auto) 57.4 Lymphocytes (%) (Auto) 28.7 Monocytes (%) (Auto) 10.9 Eosinophils (%) (Auto) 2.5 Basophils (%) (Auto) 0.5 Neutrophils # (Auto) 4.0 Lymphocytes # (Auto) 2.0 Monocytes # (Auto) 0.8 Eosinophils # (Auto) 0.2 Basophils # (Auto) 0.0 CBC Comment Sodium Level 142 Potassium Level 3.9 Chloride Level 105 Carbon Dioxide Level 30.9 Anion Gap 6 L Blood Urea Nitrogen 16 Creatinine 0.78 Estimated GFR/1.73 m2 > 90 BUN/Creatinine Ratio 20.5 H Glucose Level 106 H Calcium Level 8.9 Troponin I High Sensitivity 8 7 Pro-B-Type Natriuretic Peptide < 30 Albumin 3.9 Chemistry Comments Troponin I High Sens Percent Delta 12 Troponin I Hi Sens Absolute Change -1 Medical Decision Making Additional information obtaine: old records, family Findings EKG INTERPRETED BY ME: Rate/Rhythm: Sinus rhythm Normal Sinus Rhythm at a rate of [ 97] beats per minute QRS, ST, T-waves: No changes consistent w/ acute ischemia Impression: No evidence of ischemia or arrhythmia Initial troponin negative EKG normal Chest x-ray normal Lab work within normal limits Patient given 40 mg of Protonix IV, viscous lidocaine 15 mg, Maalox for a GI cocktail for possible GERD like symptoms. Nasal packing was inserted along the septal floor, parallel to the hard palate. The patient was reassessed after 20 minutes to ensure no continued bleeding around the packing or into the oropharynx. The patient was counseled that the packing needs to be removed within 24-72 hours. [An antibiotic was prescribed for prophylaxis with first line agent of cephalexin or amoxicillin/clavulanate (clindamycin in penicillin allergy)] MEDICAL DECISION MAKING This is a 70-year-old male with past medical history of hypertension and hiatal hernia presenting to the emergency department with acute on chronic left-sided chest pain. The patient reports paroxysmal chest pain lasting approximately 60 seconds, occurring both at rest and with activity, including after a 40-mile bike ride today. The patient endorses frequent heartburn and upper esophageal discomfort, with last EGD performed over one year ago. The patient denies shortness of breath, weakness, or diaphoresis. Of note, the patient reports a negative stress test within the past year and follows with a business process consultant. Risk Stratification and Cardiac Evaluation: Given the patient's presentation with chest pain, acute coronary syndrome was appropriately considered in the differential diagnosis. However, several factors support a low-risk cardiac profile: negative stress test within the past year, established cardiology follow-up, negative 12-lead ECG without ischemic changes, negative cardiac biomarkers, and negative chest radiograph. The patient's cardiac workup was reassuring without concerning findings. Diagnosis: The patient's excellent response to GI cocktail strongly suggests gastroesophageal reflux disease as the etiology of the current chest pain presentation. This clinical response, combined with the patient's history of hiatal hernia, frequent heartburn, upper esophageal symptoms, and lack of cardiac risk features on current evaluation, supports GERD as the primary diagnosis. The patient's ability to complete a 40-mile bike ride without sustained symptoms further argues against active cardiac ischemia. Disposition and Treatment Plan: The patient is appropriate for discharge home with low risk for major adverse cardiac events at 30 days based on negative cardiac workup and clinical presentation consistent with GERD. The patient will be prescribed omeprazole 20 mg once daily for 30 days, to be taken 30-60 minutes before a meal for optimal efficacy. The patient is advised to follow up with his primary care provider for ongoing management and consideration of repeat upper endoscopy given that his last EGD was over one year ago. Return Precautions: The patient was counseled to return to the emergency department immediately for any of the following: worsening chest pain, chest pain lasting longer than a few minutes or not relieved by antacids, chest pain associated with shortness of breath, diaphoresis, nausea, vomiting, radiation to arm/jaw/back, lightheadedness, syncope, palpitations, or any other concerning symptoms. The patient was also advised to seek urgent evaluation for development of dysphagia, odynophagia, gastrointestinal bleeding, unexplained weight loss, or recurrent vomiting. The patient verbalized understanding of the discharge instructions, treatment plan, and return precautions. The patient's anxiety regarding hospitalization was addressed, and he expressed comfort with the discharge plan. Heart Score: 2 Differential Dx:Considerations: Include: angina, costochondritis, gastritis Departure Disposition: HOME / SELF CARE / HOMELESS Impression: Primary Impression: GERD (gastroesophageal reflux disease) Condition: Stable Discharge Instructions: Food Choices for Gastroesophageal Reflux Disease, Adult, [id number], Gastroesophageal Reflux Disease, Adult Additional Instructions: Your Diagnosis: You were evaluated for chest pain. Your heart tests (EKG, blood work, chest X-ray) were normal. Your symptoms improved with antacid medication, indicating you have heartburn/acid reflux (GERD). Your Medications: Omeprazole 20 mg - Take ONE pill every morning, 30-60 minutes BEFORE breakfast, for 30 days [1-2] Continue your regular blood pressure medication What You Can Do at Home: Avoid eating within 2-3 hours of bedtime [1-2] Elevate the head of your bed 6-8 inches (use blocks under bed legs or a wedge pillow) [2] Lose weight if overweight - even small amounts help [1] Avoid trigger foods: spicy foods, chocolate, peppermint, citrus, tomatoes, high- fat meals [1-2] Limit: coffee, tea, soda, alcohol, carbonated drinks [1-2] Quit smoking if you smoke [1] Eat smaller meals throughout the day instead of large meals [2] Avoid tight-fitting clothing around your waist [2] Don't lie down right after eating [2] Follow-Up: See your primary care doctor within 1-2 weeks Discuss whether you need a repeat scope (EGD) since your last one was over a year ago Return to the Emergency Department Immediately if You Have: Chest pain lasting more than a few minutes Chest pain with: shortness of breath, sweating, nausea, pain in jaw/arm/back, lightheadedness, or feeling faint [3-4] Difficulty swallowing or painful swallowing Vomiting blood or black/tarry stools Unexplained weight loss Symptoms not improving with medication after several days Important: If you think you might be having a heart attack, call immediately. Do not drive yourself. [3][5] Referrals: NO PRIMARY CARE PROVIDER (PCP) Prescriptions Omeprazole (Prilosec) 40 Mg Capsule 1 CAP PO DAILY for 30 Days, #30 CAP Prov: ZACKARY RICHARDSON 05/17/25 Education Educated: Patient Educated regarding: diagnosis, treatment, need for follow up Signature Scribe Signature: A Attestation: Scribed for Good Kraft MD by BARRY Bass . 05/17/25 23:[address] Kraft on May 19 4:36 p.m. GOOD KRAFT MD May 17, 2025 21:33 ZACKARY RICHARDSON May 17, 2025 23:02
[2025-05-17] MEDS: mag hydrox/Alum hydrox/simeth 30ml oral suspension PO ONE (21:47)
[2025-05-17] MEDS: LIDOcaine 2% Viscous 15ml cup MM ONE (21:58)
[2025-05-17] MEDS ORDERED: OMEP40CA21 PO (22:58)
== END 2025-05-17 23:03 | disposition home or self-care (01) ==
LOC: ER 18:47
DX: K21.9 Gastro-esophageal reflux disease without esophagitis (principal); I10 Essential (primary) hypertension; G89.29 Other chronic pain; F41.9 Anxiety disorder, unspecified; M19.90 Unspecified osteoarthritis, unspecified site; Z79.899 Other long term (current) drug therapy; Z88.5 Allergy status to narcotic agent; Z88.1 Allergy status to other antibiotic agents
CPT/HCPCS: 30901; 36415; 71045; 80048; 83880; 84484; 85025; 93005; 96374; 99285; J2470